=== PATIENT | female | born 1990 | race American Indian/Alaskan Native ===

== ENCOUNTER 2017-02-05 13:57 | Emergency (ER) | payer BC, OTHER ==
[~2017-02-05] VITALS: Ht 172.7 cm; Wt 105.0 kg
[2017-02-05 13:58] VITALS: BP 134/82
[2017-02-05] MEDS ORDERED: HYDROcodone/APAP 7.5-325MG/15ML UDC PO STA (15:06)
[2017-02-05] MEDS ORDERED: HYDROcodone/APAP 7.5-325MG/15ML UDC ONE (15:20)
== END 2017-02-05 16:05 | disposition home or self-care (01) ==
LOC: ED 14:44
DX: J03.81 Acute recurrent tonsillitis due to other specified organisms (principal); B97.89 Other viral agents as the cause of diseases classified elsewhere
CPT/HCPCS: 99282